=== PATIENT | female | born 1970 | race Caucasian/White ===

== ENCOUNTER 2024-12-30 18:51 | Emergency (ER) | payer OTHER ==
[2024-12-30] MEDS ORDERED: Sodium Chloride 0.9% 10 ML Syringe FLUSH PRN (18:58)
[2024-12-30] MEDS ORDERED: Naloxone 0.4 MG/ML SDV IVPUSH PRN (19:12)
[2024-12-30] MEDS: Aspirin 81 MG Tab.Chew PO ONE (19:18)
[2024-12-30] MEDS: Nitroglycerin 0.4 MG Tab.SL SL PRN (19:18)
[2024-12-30 19:24] LABS: BASOPHILS PERCENT AUTO 0.3 % (0.2-1.5); EOSINOPHILS ABSOLUTE AUTO 0.3 x10-3/uL (0.0-0.8); EOSINOPHILS PERCENT AUTO 2.2 % (0.6-8.1); HEMOGLOBIN 13.4 g/dL (11.4-15.5); LYMPHOCYTES PERCENT AUTO 17.6 % (18.4-52.1); MEAN CORPUSCULAR HEMOGLOBIN 27.6 pg (23.9-33.9); MEAN CORPUSCULAR HGB CONC 33.4 g/dL (31.9-34.8); MEAN CORPUSCULAR VOLUME 82.7 fL (76.7-100.5); MEAN PLATELET VOLUME 7.8 fL (7.1-12.4); MONOCYTES ABSOLUTE AUTO 0.8 x10-3/uL (0.3-1.0); MONOCYTES PERCENT AUTO 6.8 % (4.4-15.7); NEUTROPHILS ABSOLUTE AUTO 8.3 x10-3/uL (1.5-6.3); NEUTROPHILS PERCENT AUTO 73.1 % (30.8-76.2); PLATELET COUNT,PLT 285 x10(3)uL (151-488); RED BLOOD CELL COUNT 4.84 x10(6)uL (3.60-5.20); RED CELL DISTRIBUTION WIDTH 15.3 % (12.3-16.5); WHITE BLOOD CELL COUNT,WBC 11.4 x10-3/uL (3.0-10.3)
[2024-12-30] MEDS: fentaNYL 100 MCG/2 ML SDV IVPUSH STA (19:25)
[2024-12-30 19:29] LABS: BLOOD UREA NITROGEN,BUN 13 mg/dL (7-18); BUN/CREATININE RATIO 14.4 (9-20); CALCIUM 9.7 mg/dL (8.6-10.2); CARBON DIOXIDE,CO2 31 mmol/L (21-32); CHLORIDE,CL 103 mmol/L (100-110); CREATININE 0.9 mg/dL (0.55-1.02); ESTIMATED GFR 76 mL/min (>60); GLUCOSE RANDOM 96 mg/dL (80-116); POTASSIUM,K 3.7 mmol/L (3.5-5.3); SODIUM,NA 140 mmol/L (135-145)
[2024-12-30 19:36] LABS: INR 1.05 (1.00-1.24); PROTHROMBIN TIME 10.9 sec (9.0-11.1); PTT,PARTIAL THROMBOPLSTIN TIME 28.2 SECONDS (24.4-33.2)
[2024-12-30 19:40] LABS: ALANINE AMINOTRANSFERASE,ALT 43 U/L (12-36); ALKALINE PHOSPHATASE 86 IU/L (56-112); ASPARTATE AMNIOTRANSFERASE,AST 24 IU/L (5-25); BILIRUBIN TOTAL 0.5 mg/dL (0.1-1.3); PROTEIN TOTAL,TP 8.1 g/dL (6.0-8.0)
[2024-12-30 19:41] LABS: TROPONIN I 7.2 pg/mL (4.0-60.3)
== END 2024-12-30 20:10 | disposition home or self-care (01) ==
LOC: FB.ED 18:51
DX: R07.89 Other chest pain (principal); R09.1 Pleurisy; Z79.899 Other long term (current) drug therapy
CPT/HCPCS: 36415; 71045; 80053; 83880; 84484; 85025; 85610; 85730; 93005; 93010; 96374; 99284; 99284-25; A9270-GY; J3010